=== PATIENT | male | born 2000 | race Asian ===

== ENCOUNTER 2024-05-22 15:07 | Outpatient (CLI) | payer OTHER, SELFPAY ==
--- NOTE | ~2024-05-22 | US_ITS ---
EXAMINATION: US soft tissue head and neck DATE: 05/22/2024 15:20 INDICATION: Localized swelling, mass and lump, head. TECHNIQUE: Multiple grayscale and Doppler ultrasound images of the head and neck were obtained. COMPARISON: None FINDINGS: There is a 7 x 6 x 3 mm subcutaneous hypoechoic mass with increased through transmission an terior to the left ear. IMPRESSION: 1. 7 mm subcutaneous mass anterior to the left ear. The differential diagnosis includes inflammation and sebaceous cyst. Reviewed, dictated and finalized at location A. [facility] [employer]
== END 2024-05-22 15:08 | disposition home or self-care (01) ==
LOC: MICIMG 15:09
PROVIDERS: PCP Student in an Organized Health Care Education/Training Program; Visit Provider Student in an Organized Health Care Education/Training Program
DX: R22.0 Localized swelling, mass and lump, head (principal)
CPT/HCPCS: 76536